=== PATIENT | female | born 1985 | race Caucasian/White ===

== ENCOUNTER 2018-10-13 18:45 | Emergency (ER) | payer OTHER ==
[2018-10-13] MEDS ORDERED: Ondansetron PF 4 MG/2 ML Vial ONE ×2 (18:55→19:58)
[2018-10-13 19:25] LABS: #Basophils 0.1 thou/uL (0.0-0.2); #Eosinphils 0.1 thou/uL (0.0-0.7); #Lymphocytes 0.5 thou/uL (1.20-3.40); #Monocytes 0.8 thou/uL (0.11-0.59); #Neutrophils 17.4 thou/uL (1.40-6.50); %Basophils 0.3 % (0.0-1.0); %Eosinophils 0.3 % (0.0-10.0); %Lymphocytes 2.7 % (21.0-51.0); %Monocytes 4.1 % (0.0-10.0); %Neutrophils 92.6 % (42.0-75.0); Hemoglobin 14.8 g/dL (12.0-16.0); Mean Corpuscular HGB CONC 34.5 g/dL (32.0-36.0); Mean Corpuscular Hemoglobin 31.7 pg (27.0-31.0); Mean Platelet Volume 9.4 fL (7.4-10.4); Platelet Count 211 thou/uL (130-400); RBC Distribution Width 11.8 % (11.5-14.5); Red Blood Cell (RBC) Count 4.68 mill/uL (4.20-5.40); White Blood Cell (WBC) Count 18.8 thou/uL (4.8-10.8)
[2018-10-13 19:26] LABS: BHCG - Serum Negative (NEGATIVE); Pregs Control Background? CLEAR/WHITE (CLR/WHITE); Pregs Control Bar Appear? YES (CONTROL BAR)
[2018-10-13 19:32] LABS: ALT (SGPT) 19 U/L (8-55); AST (SGOT) 23 U/L (5-34); Albumin 4.7 g/dL (3.5-5.0); Alkaline Phosphatase 62 U/L (40-150); Anion Gap 16 mmol/L (10-20); BUN (Urea Nitrogen) 17 mg/dL (7.0-18.7); Bilirubin, Total 0.7 mg/dL (0.2-1.2); Calc. Creatinine Clearance 0 mL/min (70-130); Calcium 9.7 mg/dL (7.8-10.44); Carbon Dioxide 21 mmol/L (22-29); Chloride 105 mmol/L (98-107); Estimated GFR-MDRD 70; Globulin 3.3 g/dL (2.4-3.5); Glucose 117 mg/dL (70-105); Lipase 8 U/L (8-78); Sodium 138 mmol/L (136-145)
[2018-10-13 20:36] LABS: Bilirubin Small (Negative); Blood, Urine Negative (Negative); Clarity Clear (Clear); Glucose, Urine (Dipstick) Negative (Negative); Leukocyte Small (Negative); Nitrite Negative (Negative); Protein, Urine (Dipstick) Negative (Neg-Trace); Urobilinogen 0.2 mg/dL (0.2-1.0); pH, Urine 5.5 (5.0-9.0)
[2018-10-13 20:38] LABS: Bacteria/HPF 1+ HPF (None Seen); Hyaline Casts/LPF 0-3 HYALINE CAST LPF (0-3 Hyaline); RBC/HPF 0-3 HPF (0-3); Squamous Epithelial 0-3 HPF (0-3); WBC/HPF 0-3 HPF (0-3)
== END 2018-10-13 21:20 | disposition home or self-care (01) ==
LOC: SCSER 18:45
DX: K52.9 Noninfective gastroenteritis and colitis, unspecified (principal); Z79.01 Long term (current) use of anticoagulants
CPT/HCPCS: 80053; 81003; 81015; 83605; 83690; 84703; 85025; 87086; 96361; 96374; 96376; J2405

== ENCOUNTER 2019-08-13 11:05 | Day surgery (SDC) | payer OTHER ==
[2019-08-13 11:45] VITALS: TEMP 98.8; BMI 25.8
[2019-08-13] MEDS ORDERED: hydrALAZINE 20 MG/ML VIAL SLOW IVP PRN (11:56)
--- NOTE | 2019-08-14 07:42 | SS ---
DATE OF ADMISSION: 08/13/2019 DATE OF DISCHARGE: 08/13/2019 REGULAR PHYSICIAN: Johnathon Holman MD EVALUATING PHYSICIAN: Nolan Brito MD CHIEF COMPLAINT: Cramping at home yesterday. HISTORY OF PRESENT ILLNESS: Ms. Lawson is a 33-year-old white, G6, P2 with an estimated date of confinement of 11/16/2019, who presents complaining of cramping last evening while she was moving. She denies ruptured membranes, vaginal bleeding, or urinary symptoms. She states her symptoms are better today, but that she was seen by Dr. Holman and told to come here. PAST OBSTETRICAL HISTORY: Includes 2 vaginal deliveries at term and 3 early miscarriages. PAST MEDICAL HISTORY: Anxiety. PAST SURGICAL HISTORY: [place] tooth extraction. CURRENT MEDICATIONS: 1. vitamins. 2. Lexapro 10 mg daily. ALLERGIES: NO KNOWN ALLERGIES. SOCIAL HISTORY: Denies tobacco, alcohol, or drug use. FAMILY HISTORY: Unremarkable. REVIEW OF SYSTEMS: Denies nausea, vomiting, fever, chills, ruptured membranes, vaginal bleeding, urinary frequency, or dysuria. PHYSICAL EXAMINATION: VITAL SIGNS: In triage, her vital signs are stable. She is afebrile. GENERAL: She is pleasant, but appears slightly anxious. ABDOMEN: Soft, nontender, and gravid. PELVIC: Shows the cervix to be long and closed and is firm in consistency. heart rate tracing is stable. There are no decelerations. No uterine contractions are seen. ASSESSMENT: 1. 26 and 3/7th week intrauterine . 2. No evidence of labor. PLAN: The patient will be dismissed to home. The patient was told to rest and hydrate at home and to contact Dr. Holman should she have recurrence of her symptoms. labor precautions were reviewed with her in detail. Job ID: [id number]
== END 2019-08-13 12:20 | disposition home health service (06) ==
LOC: L&D/OP 11:05
PROVIDERS: ATTEND Family Medicine
DX: O99.89 Other specified diseases and conditions complicating pregnancy, childbirth and the puerperium (principal); R10.9 Unspecified abdominal pain; O99.342 Other mental disorders complicating pregnancy, second trimester; F41.9 Anxiety disorder, unspecified; O09.292 Supervision of pregnancy with other poor reproductive or obstetric history, second trimester; Z3A.26 26 weeks gestation of pregnancy; Z79.899 Other long term (current) drug therapy
CPT/HCPCS: 99283

== ENCOUNTER 2019-11-04 06:43 | Day surgery (SDC) | payer OTHER ==
[2019-11-04 07:11] VITALS: BMI 27.3
[2019-11-04 07:16] VITALS: BP 141/89
[2019-11-04] MEDS ORDERED: hydrALAZINE 20 MG/ML VIAL SLOW IVP PRN (07:32)
--- NOTE | 2019-11-04 07:34 | PDOC.LDHP ---
Labor and Delivery H&P Chief complaint: contractions HPI: 33 y/o at 38w2d, patient of Dr. Holman, presents with ctx since last night. They have become closer together and more painful. Denies VB, LOF, decreased FM or other concerns. ROS neg for HEENT, CV, pulm, GI, , neuro, psych, skin, musculoskeletal, or constitutional symptoms other than mentioned above. OB History Details: 2 prior term 3 SAB Current complications: none Past Medical History: None Current medications: pre- vitamins Previous surgical history: none Allergies/Adverse Reactions: Allergies Allergy/AdvReac Type Severity Reaction Status Date / Time No Known Allergies Allergy Verified 11/04/19 07:08 Social history: none - Physical Exam Vital signs reviewed and normal: yes Abnormal vital signs: initial mild range BP General: NAD Lungs: nonlabored breathing Abdomen: gravid Extremeties: no edema FHT: category 1 (140s, mod variability, + accels, no decels) [place] contractions every: 4 mins - Vaginal Exam cm dilated: 4 Effacement: 50% Station: -2 - Assessment 33 y/o at 38w2d with no e/o active labor. status reassuring with reactive NST. Initial borderline elevated BP, followed by several normal BPs. Patient reports this is normal for her and likely due to anxiety. Asymptomatic. - Plan -: D/c home with precautions. Advised to keep all appointments. Return with worsening labor sx or PIH sx.
== END 2019-11-04 08:01 | disposition home health service (06) ==
LOC: L&D/OP 06:43
PROVIDERS: ATTEND Family Medicine
DX: O47.1 False labor at or after 37 completed weeks of gestation (principal); Z3A.38 38 weeks gestation of pregnancy
CPT/HCPCS: 99282

== ENCOUNTER 2019-11-04 15:42 | Inpatient (IN) | payer OTHER ==
[2019-11-04 16:04] VITALS: BMI 27.3
[2019-11-04] MEDS ORDERED: hydrALAZINE 20 MG/ML VIAL SLOW IVP PRN ×2 (16:23→23:15)
[2019-11-04] MEDS ORDERED: Lidocaine 1% (PF) 30 ML VIAL SC PRN (16:23)
[2019-11-04] MEDS ORDERED: Ibuprofen 800 MG TAB PO PRN (16:23)
[2019-11-04] MEDS ORDERED: NS / Oxytocin 40 units/1000ml 1,000 ML IV PRN (16:23)
[2019-11-04] MEDS ORDERED: Butorphanol Tartrate 1 MG/ML VIAL SLOW IVP PRN (16:23)
[2019-11-04] MEDS ORDERED: Lactated Ringer's 1,000 ML IV SCH ×2 (16:30)
[2019-11-04 17:06] LABS: Hemoglobin 12.7 g/dL (12.0-16.0); Mean Corpuscular Hemoglobin 32.3 pg (27.0-31.0); Mean Corpuscular Volume 95.1 fL (78.0-98.0); Platelet Count 161 thou/uL (130-400); RBC Distribution Width 12.3 % (11.5-14.5); Red Blood Cell (RBC) Count 3.93 mill/uL (4.20-5.40)
[2019-11-04] MEDS ORDERED: Fentanyl 4 mcg/Bup 0.1% Cadd 100 ML ONE (17:22)
[2019-11-04 17:44] LABS: HBSAg Index 0.14 S/CO (0-0.99); Hep B Surf Ag Non-Reactive S/CO (NonReactive); Syphilis Antibody Nonreactive (Nonreactive); Syphilis Antibody Index 0.05 S/CO (<1.00 Non-Reactive)
[2019-11-04] MEDS ORDERED: EPHEDRINE 25 MG/5 ML SYRINGE SLOW IVP PRN (18:11)
[2019-11-04] MEDS ORDERED: Ondansetron PF 4 MG/2 ML Vial IVP PRN (18:11)
[2019-11-04] MEDS ORDERED: Naloxone HCl 0.4 mg/ml Vial IVP PRN ×2 (18:11)
[2019-11-04] MEDS ORDERED: diphenhydrAMINE 50 MG/ML VIAL IVP PRN (18:11)
[2019-11-04] MEDS ORDERED: Lactated Ringer's 500 ML IV PRN (18:11)
[2019-11-04] MEDS ORDERED: Promethazine HCl 25 MG/ML VIAL IM PRN (18:11)
[2019-11-04] MEDS ORDERED: Acetaminophen 325 MG TAB PO PRN (18:11)
[2019-11-04] MEDS ORDERED: Fentanyl 4 mcg/Bupivacaine 0.1% Cassette 100 ML EPIDURAL SCH (18:15)
[2019-11-04] MEDS ORDERED: Communication Order-Pharmacy FS SCH (18:15)
[2019-11-04] MEDS ORDERED: Lidocaine 1% (PF) 30 ML VIAL ONE (20:01)
[2019-11-04] MEDS ORDERED: NS / Oxytocin 40 units/1000ml 1,000 ML ONE (20:01)
--- NOTE | 2019-11-04 20:17 | PDOC.LDHP ---
Labor and Delivery H&P Chief complaint: contractions HPI: CTX started last night. Was seen this AM in latent labor and was 3 cm and sent home. Rested and things picked up again this afternoon. Current gestational age (weeks): 37 Due date: 11/22/19 Grav: 6 Para: 2 OB History Details: SAB x3 Current complications: none Abnormal US findings: No Current medications: pre- vitamins Allergies/Adverse Reactions: Allergies Allergy/AdvReac Type Severity Reaction Status Date / Time No Known Allergies Allergy Verified 11/04/19 16:03 Social history: none - Physical Exam Vital signs reviewed and normal: yes General: NAD, resting Heart: RRR Lungs: CTAB Abdomen: gravid Extremeties: no edema FHT: category 1, variability present [place] contractions every: 3-5 minutes - Vaginal Exam cm dilated: 5 Effacement: 75% Station: -2 - OB Labs Blood type: O RH: positive Antibody Screen: negative HIV: negative RPR: negative HEPSAg: negative 1 hour GCT: negative GBS: negative Urine drug screen: negative Rubella: immune - Assessment L&D Assessment: term patient in labor - Plan Plan: admit to L&D, labor augmentation if indicated, informed consent obtained, anesthesia consult for pain management
--- NOTE | 2019-11-04 20:20 | PDOC.EVN ---
Event Note - Event Note Event Note: Came to bedside to evaluate patient. Doing well. Comfortable with epidural. CTX every 3-5 minutes with slow cervical change. AROM with clear fluid without complications. SVE 7/-2. FHT category I. Continue expectant management.
--- NOTE | 2019-11-04 21:35 | PDOC.OPDEL ---
OB Operative/Delivery Note Delivery Dr/Surgeon: [place] Pre-Delivery Diagnosis: active labor Procedure/Post Delivery Dx: spontaneous vaginal delivery (Head OA, loose nuchal cord x1, shoulders and body easily followed, mouth and nares bulb suctioned and baby stimulated.) Weeks gestation: 37 Anesthesia: epidural - Findings A Sex: female - 1 min: 7 - 5 min: 8 - Additional Findings/Plan Placenta delivered: spontaneous (Intact, 3 vessel cord) Repaired Obstetrical Laceration: none Estimated blood loss: 250 Compilations/Other Findings: Initially no cry, good tone and heart rate. Resolved with PPV. Cord gases obtained. Those results are pending at this time.See Chu notes for details of resuscitation. Post delivery plan: routine recovery
[2019-11-04 21:43] LABS: Actual Bicarbonate (HCO3v) 23 mEq/L (22-28); Base Excess -1.1 mEq/L (-2.0 to +3.0); pH (Cord, venous) 7.42 (7.32-7.43)
[2019-11-04] MEDS ORDERED: HYDROcodone/Acetaminophen 5/325 mg Tablet PO PRN (23:15)
[2019-11-04] MEDS ORDERED: NS / Oxytocin 40 units/1000ml 1,000 ML IV SCH (23:15)
[2019-11-04] MEDS ORDERED: Benzocaine-Menthol 82.5 ML CAN TOP PRN (23:15)
[2019-11-04] MEDS ORDERED: Lanolin Ointment 7 GM TUBE TOP PRN (23:15)
[2019-11-04] MEDS ORDERED: Milk Of Magnesia 30 ML UDCUP PO PRN (23:15)
[2019-11-04] MEDS ORDERED: Bisacodyl 10 MG SUPP PR PRN (23:15)
[2019-11-05] MEDS: Ibuprofen 800 MG TAB PO SCH ×3 (00:50→16:00)
[2019-11-05] MEDS ORDERED: diphenhydrAMINE 25 MG CAP PO PRN (03:21)
[2019-11-05] MEDS ORDERED: Ferrous Sulfate 325 MG TAB PO SCH (08:00)
[2019-11-05] MEDS ORDERED: Docusate Calcium (SURFAK) 240 MG CAP PO SCH (09:00)
[2019-11-05 12:08] VITALS: BP 144/77; TEMP 98.2
--- NOTE | 2019-11-05 14:20 | PDOC.PP ---
Post Progress Note Post Day #: 1 Subjective: Doing well. NO complaints. Lochia normal. well. PO intake tolerated: yes Flatus: yes Ambulation: yes Vital Signs (12 hours) Temp Pulse Resp BP BP Pulse Ox 11/05/19 12:00 98.2 F 96 16 144/77 H 11/05/19 08:00 97.9 F 85 16 106/55 L 97 11/05/19 03:26 98.0 F 97 16 132/74 99 Weight Weight 180 lb - Physical Examination General: NAD Cardiovascular: no m/r/g, RRR Respiratory: clear to auscultation bilaterally Abdominal: + bowel sounds Extremities: negative homans (B) Neurological: no gross focal deficits Psychiatric: A&Ox3 Result Diagrams: 11/04/19 16:57 Additional Labs: Post Labs Blood Type O POSITIVE 11/04/19 16:55 Hep Bs Antigen Non-Reactive S/CO (NonReactive) 11/04/19 16:57 (1) Vaginal delivery Status: Acute - Assessment/Plan Routine PP care D/C home F/U in 6 weeks with me
== END 2019-11-05 16:05 | disposition home or self-care (01) | DRG 807 ==
LOC: L&D/OP 15:42 → L&D 16:23 → 3SW 23:39
PROVIDERS: ADMIT Obstetrics & Gynecology; ATTEND Family Medicine
PROC: 10E0XZZ Delivery of Products of Conception, External Approach (ICD-10-PCS; principal; 2019-11-04)
PROC: 10907ZC Drainage of Amniotic Fluid, Therapeutic from Products of Conception, Via Natural or Artificial Opening (ICD-10-PCS; 2019-11-04)
DX: O69.81X0 Labor and delivery complicated by cord around neck, without compression, not applicable or unspecified (principal); Z37.0 Single live birth; O69.89X0 Labor and delivery complicated by other cord complications, not applicable or unspecified; Z3A.37 37 weeks gestation of pregnancy
CPT/HCPCS: 36415; 51702; 82805; 85027; 86780; 86850; 86900; 86901; 87340; 99285; J2001; Q0163